=== PATIENT | male | born 1935 | race Hispanic/Latino ===

== ENCOUNTER 2021-09-21 10:00 | Inpatient (IN) | payer MEDICARE, OTHER ==
[~2021-09-21] VITALS: Ht 180.3 cm; Wt 66.7 kg
[2021-09-21] MEDS ORDERED: SODIUM CHLORIDE 0.9% 500ML 500 ML IV ONE (10:15)
[2021-09-21] MEDS ORDERED: INSULIN REGULAR, HUMAN 100 UNIT/1 ML IV ONE (10:15)
[2021-09-21 10:45] LABS: BASOPHILS % 0.2 % (0.0-1.0); EOSINOPHILS % 0.4 % (0.0-6.0); HEMATOCRIT 39.7 % (38.2-49.6); HEMOGLOBIN 13.5 g/dL (14.0-18.0); LYMPHOCYTES # (AUTO) 1.2 (1.0-3.2); LYMPHOCYTES % 25.1 % (18.0-39.1); MEAN CORPUSCULAR HEMOGLOBIN 31.3 pg (28-32); MEAN CORPUSCULAR VOLUME 91.9 fL (81-99); MONOCYTES # (AUTO) 0.3 (0.2-0.8); MONOCYTES % 5.4 % (4.4-11.3); NEUTROPHILS # (AUTO) 3.2 (2.1-6.9); NEUTROPHILS % 68.7 % (38.7-80.0); PLATELET COUNT 168 x10e3/uL (140-360); RED BLOOD COUNT 4.32 x10e6/uL (4.3-5.7); RED CELL DISTRIBUTION WIDTH 15.1 % (11.7-14.4)
[2021-09-21 10:54] LABS: CLARITY,URINE CLEAR (CLEAR); COLOR,URINE YELLOW (YELLOW); KETONES,URINE NEGATIVE (NEGATIVE); LEUKOCYTE ESTERASE ,URINE NEGATIVE (NEGATIVE); NITRITE,URINE NEGATIVE (NEGATIVE); PROTEIN,URINE DIPSTICK 1+ (NEGATIVE); URINE UROBILINOGEN 0.2 mg/dL (0.2 - 1)
[2021-09-21 11:01] LABS: INR 1.02; PROTHROMBIN TIME 14.3 seconds (11.9-14.5)
[2021-09-21 11:02] LABS: PARTIAL THROMBOPLASTIN TIME 29.4 seconds (23.8-35.5)
[2021-09-21 11:07] LABS: ALBUMIN 3.5 g/dL (3.5-5.0); ALBUMIN/GLOBULIN RATIO 0.9 (0.8-2.0); ANION GAP 17.5 mmol/L (8-16); CALCIUM 8.9 mg/dL (8.4-10.2); CREATININE, SERUM 2.92 mg/dL (0.72-1.25); MAGNESIUM 1.9 MG/DL (1.3-2.1); POTASSIUM 3.5 mmol/L (3.5-5.1)
[2021-09-21 11:09] LABS: BACTERIA,URINE RARE /HPF; EPITHELIAL CELLS,URINE RARE /LPF; WBC,URINE (MAN) 0-5 /HPF (0-5)
[2021-09-21 11:13] LABS: CREATINE KINASE MB 2.8 ng/mL (0-5.0)
[2021-09-21] MEDS ORDERED: INSULIN GLARGINE 100 UNITS/ML VIAL SQ STA (11:37)
[2021-09-21] MEDS ORDERED: SODIUM CHLORIDE 0.9% 1000ML 1,000 ML IV STA (11:37)
[2021-09-21] MEDS ORDERED: DEXTROSE 50% SYRINGE 50 ML IV PRN (12:15)
[2021-09-21] MEDS ORDERED: SODIUM CHLORIDE 0.9% 1000ML 1,000 ML IV ONE (12:15)
[2021-09-21] MEDS ORDERED: ONDANSETRON HCL INJ 2MG/ML 2ML 2 MG/ML VIAL IV PRN (12:15)
[2021-09-21] MEDS ORDERED: FAMOTIDINE 20 MG/2 ML VIAL IV SCH (12:30)
[2021-09-21 16:24] VITALS: BP 129/65
[2021-09-21] MEDS: INSULIN LISPRO 100 UNIT/1 ML 3ML VIAL SQ SCH ×2 (17:30→21:23)
[2021-09-21] MEDS ORDERED: LEVOXYL88 MCG PO (18:22)
[2021-09-21] MEDS ORDERED: ATORVASTATIN CA10 MG PO (18:22)
[2021-09-21] MEDS ORDERED: GLIMEPIRIDE2 MG PO (18:22)
[2021-09-21] MEDS ORDERED: LASIX40 MG PO (18:22)
[2021-09-21] MEDS ORDERED: AMARYL2 MG PO (18:22)
[2021-09-21] MEDS ORDERED: DIOVAN160 MG PO (18:22)
[2021-09-21] MEDS ORDERED: COREG6.25 MG PO (18:22)
[2021-09-21] MEDS ORDERED: FLOMAX0.4 MG PO (18:22)
[2021-09-21] MEDS ORDERED: OMEPRAZOLE40 MG PO (18:22)
[2021-09-21] MEDS ORDERED: HYDROCHLOROTHIA25 MG PO (18:22)
[2021-09-21 18:45] LABS: CREATINE KINASE MB 3.5 ng/mL (0-5.0)
[2021-09-21] MEDS ORDERED: HYDRALAZINE HCL 20 MG/ML VIAL IV PRN (20:00)
[2021-09-21] MEDS ORDERED: ACETAMINOPHEN 325 MG TAB PO PRN (20:00)
[2021-09-21] MEDS ORDERED: POLYETHYLENE GLYCOL 3350 17 GM PACK PO PRN (20:00)
[2021-09-21 20:47] VITALS: BP 149/73
[2021-09-21 21:00] VITALS: BP 149/73
[2021-09-21] MEDS: ARTIFICIAL TEARS (OPTH) 15 ML BTL OU SCH (21:00)
[2021-09-21] MEDS: FAMOTIDINE 20 MG TAB PO SCH (21:24)
[2021-09-21] MEDS: SODIUM CHLORIDE 0.9% 1000ML 1,000 ML IV SCH (21:25)
[2021-09-22] VITALS (8 sets, daily range): BP systolic 127–143; BP diastolic 65–82
[2021-09-22] MEDS: SODIUM CHLORIDE 0.9% 1000ML 1,000 ML IV SCH (05:52)
[2021-09-22 06:03] LABS: BASOPHILS % 0.2 % (0.0-1.0); EOSINOPHILS % 0.2 % (0.0-6.0); HEMATOCRIT 40.4 % (38.2-49.6); HEMOGLOBIN 13.5 g/dL (14.0-18.0); LYMPHOCYTES # (AUTO) 1.7 (1.0-3.2); LYMPHOCYTES % 19.1 % (18.0-39.1); MEAN CORPUSCULAR HGB CONC 33.4 g/dL (31-35); MEAN CORPUSCULAR VOLUME 92.7 fL (81-99); MONOCYTES # (AUTO) 0.4 (0.2-0.8); MONOCYTES % 4.1 % (4.4-11.3); NEUTROPHILS # (AUTO) 6.6 (2.1-6.9); NEUTROPHILS % 76.2 % (38.7-80.0); PLATELET COUNT 193 x10e3/uL (140-360); RED BLOOD COUNT 4.36 x10e6/uL (4.3-5.7); RED CELL DISTRIBUTION WIDTH 15.1 % (11.7-14.4)
[2021-09-22 06:29] LABS: ALBUMIN 3.3 g/dL (3.5-5.0); ALBUMIN/GLOBULIN RATIO 0.9 (0.8-2.0); ANION GAP 15.8 mmol/L (8-16); CALCIUM 8.7 mg/dL (8.4-10.2); CHOL/HDL RATIO 3.6 (3.9-4.7); CREATININE, SERUM 2.62 mg/dL (0.72-1.25); MAGNESIUM 1.7 MG/DL (1.3-2.1)
[2021-09-22 06:34] LABS: POTASSIUM 2.8 mmol/L (3.5-5.1)
[2021-09-22 06:57] LABS: THYROID STIMULATING HORMONE 17.856 uIU/mL (0.350-4.940)
[2021-09-22] MEDS: INSULIN LISPRO 100 UNIT/1 ML 3ML VIAL SQ SCH ×4 (07:30→21:26)
[2021-09-22] MEDS ORDERED: POTASSIUM CHLORIDE 20 MEQ TAB CR PO ONE ×3 (07:30→18:30)
[2021-09-22 08:13] LABS: CREATINE KINASE MB 3.8 ng/mL (0-5.0)
[2021-09-22] MEDS ORDERED: LEVOTHYROXINE SODIUM 100 MCG/VIAL IV ONE (09:00)
[2021-09-22] MEDS: FAMOTIDINE 20 MG TAB PO SCH ×2 (09:03→17:11)
[2021-09-22] MEDS: DOCUSATE SODIUM 100 MG CAP PO SCH ×2 (09:04→17:11)
[2021-09-22] MEDS: ARTIFICIAL TEARS (OPTH) 15 ML BTL OU SCH ×4 (09:04→20:51)
[2021-09-22 09:09] LABS: FREE THYROXINE INDEX 1.5642 (1.4-3.8)
[2021-09-22] MEDS: CARVEDILOL 3.125 MG TAB PO SCH (17:12)
[2021-09-22] MEDS ORDERED: MAGNESIUM SULFATE 2GM/50ML 50 ML IV ONE (17:45)
[2021-09-22] MEDS ORDERED: SODIUM PHOSPHATE 15 MMOL in SODIUM CHLORIDE 0.9% 250ML 250 ML INJ ONE (19:50)
[2021-09-22] MEDS: ATORVASTATIN 10 MG TAB PO SCH (20:51)
[2021-09-23] VITALS (7 sets, daily range): BP systolic 116–161; BP diastolic 58–86
[2021-09-23] MEDS: LEVOTHYROXINE SODIUM 50 MCG TAB PO SCH (06:07)
[2021-09-23] MEDS: FAMOTIDINE 20 MG TAB PO SCH ×2 (06:07→16:39)
[2021-09-23 06:20] LABS: BASOPHILS % 0.2 % (0.0-1.0); EOSINOPHILS % 0.6 % (0.0-6.0); HEMATOCRIT 38.2 % (38.2-49.6); HEMOGLOBIN 12.5 g/dL (14.0-18.0); LYMPHOCYTES # (AUTO) 1.7 (1.0-3.2); LYMPHOCYTES % 27.4 % (18.0-39.1); MEAN CORPUSCULAR HEMOGLOBIN 30.9 pg (28-32); MEAN CORPUSCULAR HGB CONC 32.7 g/dL (31-35); MEAN CORPUSCULAR VOLUME 94.3 fL (81-99); MONOCYTES # (AUTO) 0.4 (0.2-0.8); MONOCYTES % 6.1 % (4.4-11.3); NEUTROPHILS # (AUTO) 4.1 (2.1-6.9); NEUTROPHILS % 65.4 % (38.7-80.0); PLATELET COUNT 165 x10e3/uL (140-360); RED BLOOD COUNT 4.05 x10e6/uL (4.3-5.7); RED CELL DISTRIBUTION WIDTH 15.5 % (11.7-14.4)
[2021-09-23 07:11] LABS: ANION GAP 13.4 mmol/L (8-16); CALCIUM 8.1 mg/dL (8.4-10.2); CREATININE, SERUM 2.65 mg/dL (0.72-1.25); POTASSIUM 3.4 mmol/L (3.5-5.1)
[2021-09-23 08:09] LABS: CREATINE KINASE MB 2.6 ng/mL (0-5.0)
[2021-09-23] MEDS: INSULIN LISPRO 100 UNIT/1 ML 3ML VIAL SQ SCH ×4 (08:10→22:00)
[2021-09-23] MEDS: ARTIFICIAL TEARS (OPTH) 15 ML BTL OU SCH ×4 (08:52→22:00)
[2021-09-23] MEDS: CARVEDILOL 3.125 MG TAB PO SCH ×2 (08:53→16:40)
[2021-09-23] MEDS: DOCUSATE SODIUM 100 MG CAP PO SCH ×2 (08:53→16:39)
[2021-09-23] MEDS: ASPIRIN 81 MG ENTERIC COATED PO SCH (08:53)
[2021-09-23] MEDS ORDERED: POTASSIUM CHLORIDE 10MEQ EA PO ONE (10:15)
[2021-09-23] MEDS: ATORVASTATIN 10 MG TAB PO SCH (22:00)
[2021-09-24] VITALS (8 sets, daily range): BP systolic 122–155; BP diastolic 63–89
[2021-09-24 04:55] LABS: BASOPHILS % 0.3 % (0.0-1.0); EOSINOPHILS # (AUTO) 0.1 (0.0-0.4); EOSINOPHILS % 0.9 % (0.0-6.0); HEMOGLOBIN 12.6 g/dL (14.0-18.0); LYMPHOCYTES # (AUTO) 1.4 (1.0-3.2); LYMPHOCYTES % 20.8 % (18.0-39.1); MEAN CORPUSCULAR HEMOGLOBIN 30.4 pg (28-32); MEAN CORPUSCULAR HGB CONC 32.3 g/dL (31-35); MONOCYTES # (AUTO) 0.4 (0.2-0.8); MONOCYTES % 5.5 % (4.4-11.3); NEUTROPHILS # (AUTO) 4.9 (2.1-6.9); NEUTROPHILS % 72.2 % (38.7-80.0); PLATELET COUNT 163 x10e3/uL (140-360); RED BLOOD COUNT 4.15 x10e6/uL (4.3-5.7); RED CELL DISTRIBUTION WIDTH 15.7 % (11.7-14.4)
[2021-09-24 05:16] LABS: CALCIUM 8.4 mg/dL (8.4-10.2); CREATININE, SERUM 2.56 mg/dL (0.72-1.25)
[2021-09-24] MEDS: LEVOTHYROXINE SODIUM 50 MCG TAB PO SCH (06:00)
[2021-09-24] MEDS: FAMOTIDINE 20 MG TAB PO SCH ×2 (08:11→17:05)
[2021-09-24] MEDS: ASPIRIN 81 MG ENTERIC COATED PO SCH (08:11)
[2021-09-24] MEDS: DOCUSATE SODIUM 100 MG CAP PO SCH ×2 (08:11→17:05)
[2021-09-24] MEDS: CARVEDILOL 3.125 MG TAB PO SCH ×2 (08:11→17:06)
[2021-09-24] MEDS: INSULIN LISPRO 100 UNIT/1 ML 3ML VIAL SQ SCH ×4 (08:52→21:00)
[2021-09-24] MEDS: ARTIFICIAL TEARS (OPTH) 15 ML BTL OU SCH ×4 (09:03→21:31)
[2021-09-24 10:37] LABS: CREATININE,URINE RANDOM 52.84 mg/dL (63-166); TOTAL PROTEIN, URINE 36.1 mg/dL (1-14)
[2021-09-24 10:40] LABS: PROTEIN/CREATININE RATIO,URINE 0.68
[2021-09-24] MEDS: ATORVASTATIN 10 MG TAB PO SCH (21:30)
[2021-09-25 05:02] VITALS: BP 145/67
[2021-09-25] MEDS: LEVOTHYROXINE SODIUM 50 MCG TAB PO SCH (05:24)
[2021-09-25 08:00] VITALS: BP 169/83
[2021-09-25] MEDS: DOCUSATE SODIUM 100 MG CAP PO SCH (08:36)
[2021-09-25] MEDS: ASPIRIN 81 MG ENTERIC COATED PO SCH (08:37)
[2021-09-25] MEDS: CARVEDILOL 3.125 MG TAB PO SCH (08:38)
[2021-09-25] MEDS: FAMOTIDINE 20 MG TAB PO SCH (08:38)
[2021-09-25] MEDS: ARTIFICIAL TEARS (OPTH) 15 ML BTL OU SCH ×2 (08:39→12:01)
[2021-09-25] MEDS: INSULIN LISPRO 100 UNIT/1 ML 3ML VIAL SQ SCH ×2 (08:44→12:01)
[2021-09-25 08:49] VITALS: BP 169/83
[2021-09-25 12:20] VITALS: BP 125/59
[2021-09-25] MEDS ORDERED: TRADJENTA5 MG PO (12:53)
[2021-09-25] MEDS ORDERED: COREG3.125 MG PO (12:53)
[2021-09-25] MEDS ORDERED: ASPIRIN EC81 MG PO (12:53)
[2021-09-25] MEDS ORDERED: ONDANSETRON HCL 4 MG ORAL DISINTEGRATING TAB PO PRN (13:15)
[2021-09-25 16:07] VITALS: BP 130/65
== END 2021-09-25 16:40 | disposition home or self-care (01) | DRG 637 ==
LOC: ER 10:10 → ERHOLD 12:07 → MED/SURG3 15:44
PROVIDERS: ADMIT Internal Medicine; ATTEND Internal Medicine
DX: E11.65 Type 2 diabetes mellitus with hyperglycemia (principal); I50.43 Acute on chronic combined systolic (congestive) and diastolic (congestive) heart failure; I13.0 Hypertensive heart and chronic kidney disease with heart failure and stage 1 through stage 4 chronic kidney disease, or unspecified chronic kidney disease; N18.4 Chronic kidney disease, stage 4 (severe); N17.9 Acute kidney failure, unspecified; E87.3 Alkalosis; E11.22 Type 2 diabetes mellitus with diabetic chronic kidney disease; Z79.899 Other long term (current) drug therapy; I25.10 Atherosclerotic heart disease of native coronary artery without angina pectoris; E78.5 Hyperlipidemia, unspecified; Z95.1 Presence of aortocoronary bypass graft; E03.9 Hypothyroidism, unspecified; R00.1 Bradycardia, unspecified; Z91.81 History of falling; E11.69 Type 2 diabetes mellitus with other specified complication; I44.0 Atrioventricular block, first degree; E11.649 Type 2 diabetes mellitus with hypoglycemia without coma; E87.6 Hypokalemia
CPT/HCPCS: 0223U; 36415; 70450; 71045; 76770; 80048; 80053; 80061; 81001; 82550; 82553; 82570; 82948; 83036; 83735; 83880; 84100; 84156; 84165; 84436; 84443; 84479; 84484; 85025; 85610; 85730; 87086; 93005; 93306; 94799; 96372; 99284; J1815; J1817; J3475; J7030; J7040; J7050; J7799

== ENCOUNTER 2021-11-22 21:07 | Emergency (ER) | payer MEDICARE, OTHER ==
[~2021-11-22] VITALS: Ht 180.3 cm; Wt 66.7 kg
[~2021-11-22 21:07] MED LIST: AMARYL2 MG PO; ASPIRIN EC81 MG PO; ATORVASTATIN CA10 MG PO; COREG3.125 MG PO; COREG6.25 MG PO; DIOVAN160 MG PO; FLOMAX0.4 MG PO; GLIMEPIRIDE2 MG PO; HYDROCHLOROTHIA25 MG PO; LASIX40 MG PO; LEVOXYL88 MCG PO; OMEPRAZOLE40 MG PO; TRADJENTA5 MG PO
[2021-11-22] MEDS ORDERED: AMIODARONE 900MG 500 ML IV ONE (21:30)
[2021-11-22] MEDS ORDERED: AMIODARONE HCL 150 MG/100 ML BAG IV ONE (21:30)
[2021-11-22 21:41] LABS: BASOPHILS % 0.2 % (0.0-1.0); EOSINOPHILS % 0.7 % (0.0-6.0); HEMATOCRIT 39.5 % (38.2-49.6); HEMOGLOBIN 11.9 g/dL (14.0-18.0); LYMPHOCYTES # (AUTO) 0.9 (1.0-3.2); LYMPHOCYTES % 18.4 % (18.0-39.1); MEAN CORPUSCULAR HEMOGLOBIN 31.1 pg (28-32); MEAN CORPUSCULAR HGB CONC 30.1 g/dL (31-35); MEAN CORPUSCULAR VOLUME 103.1 fL (81-99); MONOCYTES # (AUTO) 0.2 (0.2-0.8); MONOCYTES % 4.8 % (4.4-11.3); NEUTROPHILS # (AUTO) 3.5 (2.1-6.9); NEUTROPHILS % 75.7 % (38.7-80.0); PLATELET COUNT 185 x10e3/uL (140-360); RED BLOOD COUNT 3.83 x10e6/uL (4.3-5.7); RED CELL DISTRIBUTION WIDTH 16.6 % (11.7-14.4)
[2021-11-22 21:54] LABS: INR 1.17; PROTHROMBIN TIME 15.9 seconds (11.9-14.5)
[2021-11-22 21:55] LABS: PARTIAL THROMBOPLASTIN TIME 37.1 seconds (23.8-35.5)
[2021-11-22 22:01] LABS: ALBUMIN 3.6 g/dL (3.5-5.0); ALKALINE PHOSPHATASE 55 IU/L (40-150); ANION GAP 20.2 mmol/L (8-16); BLOOD UREA NITROGEN 43 mg/dL (7-26); BUN/CREATININE RATIO 17 (6-25); CALCIUM 9.3 mg/dL (8.4-10.2); CARBON DIOXIDE 23 mmol/L (22-29); CHLORIDE 105 mmol/L (98-107); CREATININE, SERUM 2.49 mg/dL (0.72-1.25); GLUCOSE 135 mg/dL (74-118); POTASSIUM 4.2 mmol/L (3.5-5.1); SODIUM 144 mmol/L (136-145)
[2021-11-22 22:02] LABS: ALANINE AMINOTRANSFERASE < 6 IU/L (0-55)
[2021-11-22 22:32] LABS: CREATINE KINASE MB 4.6 ng/mL (0-5.0)
[2021-11-22 22:54] VITALS: BP 139/79
== END 2021-11-22 23:00 | disposition other institution (70) ==
LOC: ER 21:11
DX: R09.02 Hypoxemia (principal); I47.20 Ventricular tachycardia, unspecified; I50.9 Heart failure, unspecified; E11.65 Type 2 diabetes mellitus with hyperglycemia; Z20.822 Contact with and (suspected) exposure to COVID-19; Z95.1 Presence of aortocoronary bypass graft; R94.31 Abnormal electrocardiogram [ECG] [EKG]; F17.210 Nicotine dependence, cigarettes, uncomplicated
CPT/HCPCS: 36415; 71045; 80053; 82550; 82553; 82948; 83735; 83880; 84484; 85025; 85610; 85730; 93005; 94760; 99285; U0002